=== PATIENT | male | born 1955 | race Caucasian/White ===

== ENCOUNTER 2020-01-28 13:17 | Inpatient (IN) | payer MEDICARE, OTHER ==
[~2020-01-28] VITALS: Ht 180.3 cm; Wt 74.3 kg
[2020-01-28] MEDS ORDERED: HYDROCODON-ACET15 ML PEG (13:51)
[2020-01-28] MEDS ORDERED: LEVOXYL100 MCG PEG (13:52)
[2020-01-28] MEDS ORDERED: GOOD NEIGHBOR P20 M1 PEG (13:54)
[2020-01-28] MEDS ORDERED: [UNRECOGNIZED DRUG - OTHER] IV (13:58)
[2020-01-28] MEDS ORDERED: PHENOBARBITAL32.4 M1 PEG (14:00)
[2020-01-28] MEDS ORDERED: DILANTIN 100MG100 MG PEG (14:05)
[2020-01-28] MEDS ORDERED: DILANTIN30 MG PEG (14:10)
[2020-01-28] MEDS ORDERED: SCOPOLAMINE TOP (14:15)
[2020-01-28] MEDS ORDERED: METFORMIN HYD1000 MG PEG (14:15)
[2020-01-28 17:15] VITALS: BP 124/77
[2020-01-28 17:27] VITALS: BP 124/77
[2020-01-28 18:07] VITALS: BP 124/77
[2020-01-29 05:37] LABS: MEAN CELL VOLUME 104 fl (78-100); MEAN CORPUSCULAR HEMOGLOBIN 33 pg (27-31); MEAN CORPUSCULAR HGB CONC 32 g/dL (33-37); MEAN PLATELET VOLUME 11.3 fl (7.4-10.4); PLATELET COUNT 74 K/mm3 (130-400); RED CELL DISTRIBUTION WIDTH 22.9 % (11.5-14.5); WHITE BLOOD COUNT 3.7 K/mm3 (4.8-10.8)
[2020-01-29 05:41] LABS: RED BLOOD COUNT 2.27 M/mm3 (4.20-5.60)
[2020-01-29 05:42] LABS: HEMATOCRIT 23.6 % (42.0-52.0); HEMOGLOBIN 7.5 g/dL (13.5-18.0)
[2020-01-29 05:44] LABS: POTASSIUM 4.8 mmol/L (3.5-5.1)
[2020-01-29 05:46] LABS: CALCIUM 8.4 mg/dL (8.3-10.5)
[2020-01-29 05:52] VITALS: BP 127/82
[2020-01-29 06:23] LABS: BAND 7 % (0-10); LYMPHOCYTE 13 % (20-51); MONOCYTE 10 % (3-10); NEUTROPHILS 65 % (42-75)
[2020-01-29 06:24] LABS: POLYCHROMASIA 1+; TOXIC GRANULATION PRESENT
[2020-01-29 18:03] VITALS: BP 137/85
[2020-01-30 06:05] VITALS: BP 135/79
[2020-01-30 10:06] LABS: MEAN CELL VOLUME 105 fl (78-100); MEAN CORPUSCULAR HEMOGLOBIN 33 pg (27-31); MEAN CORPUSCULAR HGB CONC 31 g/dL (33-37); MEAN PLATELET VOLUME 11.1 fl (7.4-10.4); PLATELET COUNT 94 K/mm3 (130-400); RED CELL DISTRIBUTION WIDTH 22.8 % (11.5-14.5); WHITE BLOOD COUNT 3.5 K/mm3 (4.8-10.8)
[2020-01-30 10:09] LABS: ALBUMIN 2.7 g/dL (3.4-4.8)
[2020-01-30 10:10] LABS: POTASSIUM 5.3 mmol/L (3.5-5.1)
[2020-01-30 10:11] LABS: CALCIUM 8.7 mg/dL (8.3-10.5)
[2020-01-30 10:12] LABS: TOTAL PROTEIN 6.8 g/dL (6.2-8.1)
[2020-01-30 10:38] LABS: TOTAL BILIRUBIN 0.1 mg/dL (0.2-1.2)
[2020-01-30 10:51] LABS: BAND 3 % (0-10); HEMOGLOBIN 7.4 g/dL (13.5-18.0); LYMPHOCYTE 17 % (20-51); MONOCYTE 10 % (3-10); NEUTROPHILS 66 % (42-75); RED BLOOD COUNT 2.28 M/mm3 (4.20-5.60)
[2020-01-30 17:02] VITALS: BP 164/89
[2020-01-30 23:23] LABS: TESTOSTERONE 72 ng/dL (221-716)
[2020-01-31 05:25] VITALS: BP 159/81
[2020-01-31 08:00] LABS: MEAN CELL VOLUME 104 fl (78-100); MEAN CORPUSCULAR HEMOGLOBIN 33 pg (27-31); MEAN CORPUSCULAR HGB CONC 32 g/dL (33-37); MEAN PLATELET VOLUME 10.9 fl (7.4-10.4); PLATELET COUNT 120 K/mm3 (130-400); RED CELL DISTRIBUTION WIDTH 22.8 % (11.5-14.5); WHITE BLOOD COUNT 3.4 K/mm3 (4.8-10.8)
[2020-01-31 08:08] LABS: HEMOGLOBIN 7.3 g/dL (13.5-18.0); RED BLOOD COUNT 2.21 M/mm3 (4.20-5.60)
[2020-01-31 08:09] LABS: LYMPHOCYTE 16 % (20-51); MONOCYTE 13 % (3-10)
[2020-01-31 08:10] LABS: BAND 3 % (0-10); NEUTROPHILS 66 % (42-75)
[2020-01-31 08:32] LABS: ALBUMIN 2.7 g/dL (3.4-4.8); CALCIUM 8.4 mg/dL (8.3-10.5); POTASSIUM 5.1 mmol/L (3.5-5.1); TOTAL BILIRUBIN 0.1 mg/dL (0.2-1.2); TOTAL PROTEIN 6.8 g/dL (6.2-8.1)
[2020-01-31 16:55] VITALS: BP 123/81
[2020-02-01 05:43] VITALS: BP 128/77
[2020-02-01 18:08] VITALS: BP 121/75
[2020-02-02 05:25] VITALS: BP 123/75
[2020-02-02 07:43] LABS: EOS # 0.1 (0.04-0.40); EOS % 1.4 % (0.0-4.0); MEAN CELL VOLUME 104 fl (78-100); MEAN CORPUSCULAR HEMOGLOBIN 33 pg (27-31); MEAN CORPUSCULAR HGB CONC 32 g/dL (33-37); MEAN PLATELET VOLUME 10.6 fl (7.4-10.4); MONO # 0.5 (0.20-0.80); NEU # 3.2 (1.40-6.50); PLATELET COUNT 149 K/mm3 (130-400); WHITE BLOOD COUNT 4.4 K/mm3 (4.8-10.8)
[2020-02-02 08:00] LABS: HEMATOCRIT 23.2 % (42.0-52.0); HEMOGLOBIN 7.4 g/dL (13.5-18.0); LYMPH# 0.6 (1.50-4.00); RED BLOOD COUNT 2.23 M/mm3 (4.20-5.60)
[2020-02-02 08:14] LABS: ALBUMIN 2.9 g/dL (3.4-4.8); POTASSIUM 5.1 mmol/L (3.5-5.1)
[2020-02-02 08:15] LABS: CALCIUM 8.5 mg/dL (8.3-10.5); MAGNESIUM 1.82 mg/dL (1.60-2.60)
[2020-02-02 08:16] LABS: TOTAL PROTEIN 7.5 g/dL (6.2-8.1)
[2020-02-02 08:42] LABS: TOTAL BILIRUBIN 0.1 mg/dL (0.2-1.2)
[2020-02-02 14:49] VITALS: BP 138/79
[2020-02-02 18:10] VITALS: BP 139/77
[2020-02-03 04:28] LABS: FOLLICLE STIMULATING HORMONE 15.3 mIU/mL (()); LUTENIZING HORMONE 14.8 mIU/mL (())
[2020-02-03 04:58] LABS: FOLATE (FOLIC ACID) 8.3 ng/mL (>=4.0)
[2020-02-03 05:26] VITALS: BP 141/80
[2020-02-03 18:00] VITALS: BP 139/77
[2020-02-04 05:48] VITALS: BP 134/81
[2020-02-04 16:37] VITALS: BP 124/77
[2020-02-05 05:34] VITALS: BP 131/75
[2020-02-05 11:56] LABS: VITAMIN B1 114 nmol/L (70-180)
[2020-02-05 17:08] VITALS: BP 136/81
[2020-02-06] VITALS (10 sets, daily range): BP systolic 111–154; BP diastolic 63–90
[2020-02-06 07:50] LABS: CALCIUM 7.9 mg/dL (8.3-10.5)
[2020-02-06 07:54] LABS: PHENYTOIN (DILANTIN) 4.9 ug/mL (10.0-20.0)
[2020-02-06 08:56] LABS: EOS # 0.1 (0.04-0.40); EOS % 2.4 % (0.0-4.0); HEMATOCRIT 19.9 % (42.0-52.0); HEMOGLOBIN 6.5 g/dL (13.5-18.0); LYMPH# 0.6 (1.50-4.00); MEAN CELL VOLUME 104 fl (78-100); MEAN CORPUSCULAR HEMOGLOBIN 34 pg (27-31); MEAN CORPUSCULAR HGB CONC 33 g/dL (33-37); MEAN PLATELET VOLUME 10.2 fl (7.4-10.4); MONO # 0.5 (0.20-0.80); NEU # 3.4 (1.40-6.50); PLATELET COUNT 215 K/mm3 (130-400); RED BLOOD COUNT 1.92 M/mm3 (4.20-5.60); RED CELL DISTRIBUTION WIDTH 24.8 % (11.5-14.5); WHITE BLOOD COUNT 4.7 K/mm3 (4.8-10.8)
[2020-02-07 06:00] VITALS: BP 130/76
[2020-02-07 06:19] LABS: HEMATOCRIT 47.3 % (42.0-52.0); HEMOGLOBIN 16.5 g/dL (13.5-18.0)
[2020-02-07 13:23] LABS: HEMATOCRIT 30.3 % (42.0-52.0); HEMOGLOBIN 10.1 g/dL (13.5-18.0)
[2020-02-07 18:00] VITALS: BP 127/76
[2020-02-08 06:03] VITALS: BP 138/64; BP 145/81
[2020-02-08 16:29] VITALS: BP 123/78
[2020-02-09 06:03] VITALS: BP 133/80
[2020-02-09 07:24] LABS: HEMATOCRIT 30.5 % (42.0-52.0); MEAN CELL VOLUME 101 fl (78-100); MEAN CORPUSCULAR HEMOGLOBIN 33 pg (27-31); MEAN CORPUSCULAR HGB CONC 33 g/dL (33-37); PLATELET COUNT 266 K/mm3 (130-400); RED BLOOD COUNT 3.02 M/mm3 (4.20-5.60); RED CELL DISTRIBUTION WIDTH 22.4 % (11.5-14.5); WHITE BLOOD COUNT 4.2 K/mm3 (4.8-10.8)
[2020-02-09 07:40] LABS: LYMPHOCYTE 14 % (20-51); MICROCYTOSIS 1+; MONOCYTE 12 % (3-10); NEUTROPHILS 67 % (42-75)
[2020-02-09 08:01] LABS: ALBUMIN 2.6 g/dL (3.4-4.8); POTASSIUM 5.3 mmol/L (3.5-5.1)
[2020-02-09 08:04] LABS: TOTAL PROTEIN 6.9 g/dL (6.2-8.1)
[2020-02-09 08:10] LABS: MAGNESIUM 1.77 mg/dL (1.60-2.60)
[2020-02-09 08:14] LABS: TOTAL BILIRUBIN 0.1 mg/dL (0.2-1.2)
[2020-02-09 17:06] VITALS: BP 149/74
[2020-02-09 17:07] VITALS: BP 149/74
[2020-02-10 05:47] VITALS: BP 134/80
[2020-02-10 08:59] VITALS: BP 124/86
[2020-02-10 17:43] VITALS: BP 146/73
[2020-02-11 05:52] VITALS: BP 129/79
[2020-02-11 18:10] VITALS: BP 126/78
[2020-02-12 00:54] LABS: ADRENOCORTICOTROPIC HORMONE 89 pg/mL (5-27)
[2020-02-12 05:40] VITALS: BP 128/75
[2020-02-12 08:20] LABS: HEMATOCRIT 32.3 % (42.0-52.0); HEMOGLOBIN 10.3 g/dL (13.5-18.0); MEAN CELL VOLUME 102 fl (78-100); MEAN CORPUSCULAR HEMOGLOBIN 33 pg (27-31); MEAN CORPUSCULAR HGB CONC 32 g/dL (33-37); MEAN PLATELET VOLUME 9.5 fl (7.4-10.4); PLATELET COUNT 243 K/mm3 (130-400); RED BLOOD COUNT 3.16 M/mm3 (4.20-5.60); RED CELL DISTRIBUTION WIDTH 22.5 % (11.5-14.5); WHITE BLOOD COUNT 5.8 K/mm3 (4.8-10.8)
[2020-02-12 08:37] LABS: ALBUMIN 2.8 g/dL (3.4-4.8)
[2020-02-12 08:38] LABS: CALCIUM 8.4 mg/dL (8.3-10.5)
[2020-02-12 08:42] LABS: TOTAL BILIRUBIN 0.1 mg/dL (0.2-1.2)
[2020-02-12 08:43] LABS: PHENYTOIN (DILANTIN) 5.3 ug/mL (10.0-20.0)
[2020-02-12 08:44] LABS: BAND 3 % (0-10); LYMPHOCYTE 7 % (20-51); MONOCYTE 12 % (3-10); NEUTROPHILS 71 % (42-75)
[2020-02-12 08:45] LABS: MICROCYTOSIS 1+; OVALOCYTES 1+
[2020-02-12 17:14] VITALS: BP 120/76
[2020-02-13 05:21] VITALS: BP 118/76
[2020-02-13 16:11] VITALS: BP 119/72
[2020-02-14 05:35] VITALS: BP 135/77
[2020-02-14 17:46] VITALS: BP 120/73
[2020-02-15 05:32] VITALS: BP 156/81
[2020-02-15 16:02] VITALS: BP 109/67
[2020-02-16 05:34] VITALS: BP 133/86
[2020-02-16 07:30] LABS: HEMATOCRIT 32.6 % (42.0-52.0); HEMOGLOBIN 10.4 g/dL (13.5-18.0); MEAN CELL VOLUME 104 fl (78-100); MEAN CORPUSCULAR HEMOGLOBIN 33 pg (27-31); MEAN CORPUSCULAR HGB CONC 32 g/dL (33-37); MEAN PLATELET VOLUME 9.9 fl (7.4-10.4); PLATELET COUNT 180 K/mm3 (130-400); RED BLOOD COUNT 3.14 M/mm3 (4.20-5.60); RED CELL DISTRIBUTION WIDTH 22.4 % (11.5-14.5); WHITE BLOOD COUNT 4.9 K/mm3 (4.8-10.8)
[2020-02-16 07:36] LABS: CALCIUM 8.3 mg/dL (8.3-10.5)
[2020-02-16 07:46] LABS: MAGNESIUM 1.7 mg/dL (1.60-2.60)
[2020-02-16 07:55] LABS: TOTAL BILIRUBIN 0.1 mg/dL (0.2-1.2)
[2020-02-16 08:17] LABS: BAND 1 % (0-10); LYMPHOCYTE 12 % (20-51); MONOCYTE 16 % (3-10); NEUTROPHILS 61 % (42-75)
[2020-02-16 16:09] VITALS: BP 129/80
[2020-02-17 05:43] VITALS: BP 138/76
[2020-02-17 17:16] VITALS: BP 112/52
[2020-02-18 05:27] VITALS: BP 151/79
[2020-02-18] MEDS ORDERED: DILANTIN100 MG/4 M PEG (09:51)
[2020-02-18] MEDS ORDERED: PHENOBARBITAL32.4 M1 PEG (09:52)
[2020-02-18] MEDS ORDERED: FAMOTIDINE20 MG PO (09:53)
[2020-02-18] MEDS ORDERED: GLUCOPHAGE PO (09:55)
[2020-02-18] MEDS ORDERED: COUGH100 MG/5 M PO (09:55)
[2020-02-18] MEDS ORDERED: HYDROCODON-ACET15 ML PEG (09:58)
[2020-02-18] MEDS ORDERED: ONDANSETRON4 MG/5 M1 PO (10:31)
== END 2020-02-18 12:50 | disposition home health service (06) | DRG 948 ==
LOC: MED/SURG 13:17
PROVIDERS: Family Medicine; Internal Medicine; Nurse Practitioner; Nurse Practitioner Family; ADMIT Physician Assistant
DX: R53.81 Other malaise (principal); D61.818 Other pancytopenia; K21.9 Gastro-esophageal reflux disease without esophagitis; E03.9 Hypothyroidism, unspecified; E11.9 Type 2 diabetes mellitus without complications; G40.909 Epilepsy, unspecified, not intractable, without status epilepticus; D53.9 Nutritional anemia, unspecified; Z93.1 Gastrostomy status; Z93.0 Tracheostomy status; Z85.818 Personal history of malignant neoplasm of other sites of lip, oral cavity, and pharynx; Z79.891 Long term (current) use of opiate analgesic; Z79.84 Long term (current) use of oral hypoglycemic drugs; Z87.891 Personal history of nicotine dependence
CPT/HCPCS: A9270-GY; J0834; J1071; J1815; J1885; J2405; P9016; Q9967

== ENCOUNTER 2020-09-27 13:12 | Inpatient (IN) | payer MEDICARE, OTHER ==
[~2020-09-27] VITALS: Ht 180.3 cm; Wt 78.3 kg
[~2020-09-27 13:12] MED LIST: COUGH100 MG/5 M PO; DILANTIN 100MG100 MG PEG; DILANTIN100 MG/4 M PEG; DILANTIN30 MG PEG; FAMOTIDINE20 MG PO; GLUCOPHAGE PO; GOOD NEIGHBOR P20 M1 PEG; HYDROCODON-ACET15 ML PEG; LEVOXYL100 MCG PEG; METFORMIN HYD1000 MG PEG; ONDANSETRON4 MG/5 M1 PO; PHENOBARBITAL32.4 M1 PEG; SCOPOLAMINE TOP; [UNRECOGNIZED DRUG - OTHER] IV
[2020-09-27] MEDS ORDERED: IPRATROPIUM BROM3 M1 IH (16:20)
[2020-09-27] MEDS ORDERED: SENEXON-S 50-81 EACH PEG (16:21)
[2020-09-27] MEDS ORDERED: ALBUTEROL1.25 MG/3 IH (16:21)
[2020-09-27] MEDS ORDERED: NOVOLOG 100U100 U/ML SQ (16:24)
[2020-09-27] MEDS ORDERED: LEVEMIR100 U/M1 SQ (16:24)
[2020-09-27] MEDS ORDERED: AMOXICILLIN AND50 M1 PEG (16:25)
[2020-09-27] MEDS ORDERED: MUCOMYST 20200 MG/M1 IH (16:26)
[2020-09-27] MEDS ORDERED: DILANTIN-1125 MG/51 PEG (16:29)
[2020-09-27] MEDS ORDERED: PRILOSEC 20MG20 MG PO (16:30)
[2020-09-27] MEDS ORDERED: PHENOBARBITAL32.4 M1 PEG (16:31)
[2020-09-27] MEDS ORDERED: HYDROCODON-ACET15 ML PEG (16:35)
[2020-09-27 16:37] VITALS: BP 136/82
[2020-09-27] MEDS ORDERED: [UNRECOGNIZED DRUG - OTHER] IV (16:37)
[2020-09-27] MEDS ORDERED: SCOPOLAMINE1 EACH TD (16:39)
[2020-09-27] MEDS ORDERED: DILANTIN30 MG PEG (16:41)
[2020-09-27] MEDS ORDERED: GLUCOPHAGE1000 MG PEG (16:42)
[2020-09-27] MEDS ORDERED: SYNTHROID0.15 MG PEG (16:43)
--- NOTE | 2020-09-27 18:00 | NUR ---
Pt arrived to 203 for SWB. Pt arrived with trach in place on room air. PICC line to L. upper arm; dual lumen; blood return and flushes easily. Report of dressing and cap cahnge earlier today prior to departure from [facility]. Dressing clean, dry and intact. No redness of drainage to insertion site. Pt alert and oriented. Reported epigastric pain of 4/10 but denied need for intervention at this time. Pt has PEG tube in place, clamped. Insertion site with scant amount of crusting but no redness. PEG tube 30ml air bolus auscultated, no residual noted. Flushed with 30ml water without difficulty. Pt hooked up to continuous 2Cal feedings at 54ml/hr with 125ml flushes q4h as instructed. Midline abd incision open to air; 19 christa present. Edges well-approximated. Pt swishes water in mouth and spits water out and suctions self but noted to cough afterward. Pt states he does this at home. Pt strongly encouraged by nursing staff to avoid this until further assessment can be completed. Pt verbalized understanding but states he would like to continue at home practices at this time. Pt seems to be in good spirits and interacts well with staff. Occasionally jokes with self and smile. Call light within reach. Bed alarm on. Pt aware of fall precations. Denies further needs at this time.
--- NOTE | 2020-09-27 18:23 | NUR ---
Pt familiar to me from [facility]. This RD arranged feeding plans TF formula, pump and tubing. Discussed care with pt's nurse. Order his feeding regimen same as Ann. Will complete nutrition assessment tomorrow.
--- NOTE | 2020-09-27 19:40 | NUR ---
Report given to Tisha Granados LPN.
--- NOTE | 2020-09-27 22:00 | NUR ---
Report received at shift change by Sully/Aster RN's. This nurse in room now to do shift assessment and administer medications. Patient had rang call light prior to nurse going in room and stated to CHEMICAL TECHNICIAN that he has a pain in his L groin area. [place] 7.5 MG given along with other HS medications via PEG. Tube feeding was stopped 30 Minutes prior to administration of Dilantin and will resume 30 minutes after at 54 ML/HR. 125 ML water flush given at this time. HOB elevated > 30 degrees. Patient self suctions trach PRN and also rinses and spits mouth with ice water. Assessment completed. Became nauseated, IV Zofran administered. Denies further wants or needs. Remains on Airborne precautions pending results of COVID PCR. Bed alarm on. Call light in reach.
--- NOTE | 2020-09-28 03:37 | NUR ---
Scheduled nebulizer tx given via trach. Denies pain or nausea. Has some "indigestion". Moved up higher in bed with HOB elevated. Continues to self suction trach PRN.
--- NOTE | 2020-09-28 05:13 | NUR ---
Rings call light, State he is "sick". Nauseated with no emesis. Residual checked and is 10 ML. Zofran IV given. HOB remains elevated >30 degrees.
[2020-09-28 06:12] VITALS: BP 147/85
--- NOTE | 2020-09-28 07:19 | NUR ---
Report to Mallory/Aster HAIRSTON's.
--- NOTE | 2020-09-28 07:55 | NUR ---
Shift report received from Tisha Granados LPN.
[2020-09-28 10:08] LABS: BASO # 0.1 (0.02-0.10); EOS # 0.5 (0.04-0.40); HEMATOCRIT 25.3 % (42.0-52.0); LYMPH# 0.8 (1.50-4.00); MEAN CORPUSCULAR HEMOGLOBIN 35 pg (27-31); MEAN CORPUSCULAR HGB CONC 31 g/dL (33-37); MEAN PLATELET VOLUME 9.8 fl (7.4-10.4); MONO # 0.6 (0.20-0.80); PLATELET COUNT 286 K/mm3 (130-400); WHITE BLOOD COUNT 5.9 K/mm3 (4.8-10.8)
[2020-09-28 10:11] LABS: ALBUMIN 2.7 g/dL (3.4-4.8); POTASSIUM 4.4 mmol/L (3.5-5.1)
[2020-09-28 10:13] LABS: CALCIUM 8.6 mg/dL (8.3-10.5)
[2020-09-28 10:14] LABS: TOTAL PROTEIN 5.9 g/dL (6.2-8.1)
[2020-09-28 10:26] LABS: PROTHROMBIN TIME 10.3 SECONDS (9.0-12.0); TOTAL BILIRUBIN 0.1 mg/dL (0.2-1.2)
--- NOTE | 2020-09-28 10:40 | NUR ---
ST isidro requested for pt. GRACY Mccord gave verbal order.
[2020-09-28 10:44] LABS: RED BLOOD COUNT 2.24 M/mm3 (4.20-5.60)
[2020-09-28 10:45] LABS: EOS % 7.7 % (0.0-4.0); HEMOGLOBIN 7.8 g/dL (13.5-18.0); MEAN CELL VOLUME 113 fl (78-100)
--- NOTE | 2020-09-28 10:46 | NUR ---
Received call from Aaliyah in Lab with critical Hgb of 7.8. Called and updated provider, GRACY Saunders. No new orders at this time.
--- NOTE | 2020-09-28 11:00 | NUR ---
Pt reporting pain of 5/10 to his L. neck. Offered pain medication. Pt declined and stated "I try to avoid them." Encouraged pt to contact nurses if pain increases or he changes his mind regarding pain medication.
[2020-09-28 11:15] LABS: URINE APPEARANCE CLEAR; URINE BILIRUBIN NEGATIVE (NEGATIVE); URINE BLOOD NEGATIVE (NEGATIVE); URINE COLOR YELLOW; URINE GLUCOSE 50 mg/dL mg/dL (NEGATIVE); URINE KETONE NEGATIVE (NEGATIVE); URINE LEUKOCYTE ESTERASE NEGATIVE (NEGATIVE); URINE MUCUS PRESENT (NOT PRESENT); URINE NITRATE NEGATIVE (NEGATIVE); URINE PROTEIN(semi-quant) TRACE mg/dL (NEGATIVE); URINE UROBILINOGEN NORMAL (NORMAL); URINE WBC 0-1 /hpf (0-3)
--- NOTE | 2020-09-28 11:44 | NUR ---
the pt's inner cannula of his trach is removed and cleansed at this time. the trach is put back in place after cleansing. the pt tolerates procedure well.
--- NOTE | 2020-09-28 16:13 | NUR ---
Spoke with Hilton. She states she would like her to have an air matress to prevent bed sores. She states that he has a current bed sore that is in the process of healing. She would like to know it is being addressed. She also would like for her 's trach to be changed out two times a day once in the morning and once in the evening. She states that her was receiving chemo treatments by Dr. Spivey. She has not spoken or has not seen Dr. Casanova in over a month. She would like to know when her will be following up with Dr. Casanova. She also thinks her needs Vitamin D and would be willing to bring his up if needed. Social History: Yung has since retired. 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 He graduated from High school. They have a son named Rick. Rick helps with the care of his Dad. Yung likes motorcycles, trains and growing [employer] trees. He receives Home Health Care from [facility]. He gets pt, ot, and speech therapy. It is possible he will need a bath aid as well upon discharge.
[2020-09-28 17:31] VITALS: BP 138/73
--- NOTE | 2020-09-28 19:15 | NUR ---
Report given to Argelia Bueno RN.
--- NOTE | 2020-09-28 21:27 | NUR ---
Pt assessed and assessment charted. PT c/o pain to abd and trach site, PRN [place] given per request. ABD midline well approximated with christa intact and no dressing. PEG residual less than 5 mls, meds given. New tubing and tube feeding started 30 minutes after infusion. Pt received RT treatments. Up to bathroom, SBA but unsteady at times. Bed alarm on, pt in bed and appears comfortable, SCDs on, will continue to monitor.
--- NOTE | 2020-09-28 22:45 | NUR ---
Madeline NORTON into see patient.
--- NOTE | 2020-09-29 00:10 | NUR ---
Patient reported nausea then indigestion and zofran IV and protonix via peg tube given.
[2020-09-29 05:54] VITALS: BP 130/66
--- NOTE | 2020-09-29 06:00 | NUR ---
Patient rests in bed. Had only 3mls residual in peg tube this am. Denies needs at this time. Uses yanker suction prn, suctions thick velazquez drainage.
--- NOTE | 2020-09-29 11:40 | NUR ---
Air Mattress to prevent bedsores has been ordered by GRACY Borrego. Will contact materials managment to order.
--- NOTE | 2020-09-29 13:23 | NUR ---
CALL FROM PT'S PCP TO NOTIFY STAFF HIS ZOOM FOR TOMORROW HAS BEEN CANCELLED FOR THE TIME BEING, WILL NOTIFY STAFF
--- NOTE | 2020-09-29 13:40 | NUR ---
PT MOVED TO ROOM 308 THIS AM, SMILING AT THIS TIME, ZERO RESIDUAL WITH TUBE FEED, FLUSHING WELL, PEG MEDS ADMINISTERED WITH NO DIFFICULTY, PT DENIES NEEDS, ABLE TO SPEAK WITH SPEAKING VALVE, DENIES PAIN, WATCHING TELEVISION AND RESTING IN BED, ICE CHIPS UPON REQUEST, CALL LIGHT WITHIN REACH AND BED ALARM ON, STAPES TO ABDOMINAL INCISION CDI/REPAIRER SWITCHGEAR, DENIES PAIN AT SITE, ONLY C/O RIGHT HAND PAIN THIS SHIFT, MINIMAL AT THIS TIME
--- NOTE | 2020-09-29 15:53 | NUR ---
TRACH CARE IS PERFORMED AT THIS TIME. THE PT'S INNER CANNULA IS REMOVED AND AND CLEANSED. IT IS PLACED BACK INTO TRACH SITE. THE PT TOLERATES PROCEDURE WELL. PT DENIES ANY NEEEDS AT THIS TIME. WHILE THIS RN IS IN THE ROOM THE PT IS NOTED TO DRINK WATER FROM A CUP WHICH HAD MELTED ICE IN IT. THE PT IS INSTRUCTED NOT TO DRINK WATER HE IS AT RISK FOR ASPIRATING. THE CUP IS REMOVED FROM THE PT'S REACH.
--- NOTE | 2020-09-29 17:53 | NUR ---
PT GAGGING AND "SPITTING UP", PT DRINKING MELTED ICE CHIPS, EDUCATED MULTIPLE TIMES TODAY TO NOT DRINK THIN LIQUIDS, ICE CHIP CUPS REMOVED FROM ROOM AT THIS TIME FOR SAFETY PT IS A HIGH ASPIRATION RISK IF HE CONTINUES TO DRINK THIN LIQUIDS FREELY FROM A CUP
[2020-09-29 18:10] VITALS: BP 120/75
--- NOTE | 2020-09-30 01:03 | NUR ---
PATIENT CALLED TO USE THE REST ROOM, AMBULATED TO THE BATHROOM AND BACK WITH 1 ASSIST W/WALKER AND GAIT BELT, BEARS WEIGHT WITHOUT DIFFICULTY BUT OCCASIONALLY UNSTEADY ON FEET, VOIDS WITHOUT DIFFICULTY, UPON RETURN TO BED, PATIENT C/O NAUSEA AND BEGINS DRY HEAVING, IV ZOFRAN GIVEN AT THIS TIME, AFTER DRY HEAVING STOPS, PATIENT REQUESTS DEEP SUCTIONING, PERFORMED AT THIS TIME USING STERILE TECHNIQUE, PATIENT TOLERATES WELL, COOL CLOTH APPLIED TO FOREHEAD, PATIENT RESTING QUIETLY ON BED, HOB > 45 DEGREES, CALL LIGHT WITHIN REACH, SIDE RAILS UP X 2, BED ALARM ON, TUBE FEEDING INFUSING AT 54 CC/HR AT THIS TIME WITHOUT DIFFICULTY
[2020-09-30 05:51] VITALS: BP 149/75
--- NOTE | 2020-09-30 07:00 | NUR ---
RECEIVED REPORT FROM YOVANNY MASSEY.
--- NOTE | 2020-09-30 13:33 | NUR ---
patient resting in bed; has been up to chair this morning but mostly in bed. Patient is working with PT and denied pain with this nurse and denied nausea today. Patient is cooperative and helps with PEG tube during meds. Kangaroo pump used for continuous feeds.
--- NOTE | 2020-09-30 15:58 | NUR ---
PATIENT'S BACK WAS ASSESSED AND BANDAGES REMOVED. NOTED TO HAVE ABRASIONS TO CENTER OF BACK ALONG THE SPINE. ONE APPEARS TO BE RED ARA FROM RIPPING TAPE OFF; AND PATIENT EXPLAINS THAT THIS IS FROM THE PUMP THEY HAD ON HIM AT [facility]. PATIENT HAD 3 OTHER SMALL AREAS THAT HAVE SCABS AND THEY ARE HEALED AND NO AREAS ARE DRAINING. LEFT OPEN TO AIR AND UPDATED PATIENT. HE WANTED A PICTURE TAKEN ON HIS PHONE SO HE COULD SEE IT. PICTURE TAKEN AND ASKED HIM TO LEAVE IT ON THERE AND MAYBE WE CAN COMPARE IT TO SEE THE PROGRESS OF HEALING JUST IN CASE. PATIENT AGREED. PATIENT DENIES PAIN TO HIS BACK. PATIENT'S SACRUM NOTED TO BE HEALED FROM A PAST BED SORE THAT HE REPORTS HE HAD A WHILE AGO. PATIENT WAS GIVEN OPTION FOR AIR MATTRESS AND HE REFUSES IT AT THIS TIME. PATIENT IS UPDATED THAT HIS WOULD LIKE HIM TO HAVE THE MATTRESS AND HE STILL SAYS NO. PATIENT HAS BEEN PULLING OUT HIS INNER CANNULA TRACH AND SUCTIONS TRACH HIMSELF. PATIENT ASKED FOR A LONG CANNULA TO SUCTION DEEP AND EXPLAINED TO PATIENT THAT ISN'T SOMETHING WE CAN GIVE HIM TO DO. PATIENT ROLLED HIS EYES.
[2020-09-30 17:17] VITALS: BP 147/64
--- NOTE | 2020-09-30 17:23 | NUR ---
Spoke with Hilton on the phone today. She was concerned that her was not getting a shower and getting his hair washed. She also wanted to make sure that his trach dressing was clean and dry and changed twice a day. She also wanted to make sure he was warm enough. she said that she would try to call him tomorrow. Today he could not understand her very well. I went in to see Mr. Eng and he says with the PessiMeir valve that he does not need the air matress at this time. He also said that he had a shower yesterday and they washed his hair. Trach dressing changed per 's request. Advised that his PCR Covid-19 screening is negative.
[2020-10-01 06:19] VITALS: BP 132/77
--- NOTE | 2020-10-01 12:30 | NUR ---
Called pt's , Hilton, to follow up on a question about pt's Vitamin D. Hilton was concerned that pt was not getting his home Vitamin D. Reassured her that it had been ordered yesterday. Hilton also voiced concern over pt;s trach site and the care pt has been receiving. Reassured Hilton that nursing staff had received the supplies that she brought in earlier in the week and that they were providing trach care to pt as ordered. Hilton voiced questions about when provider would visit with pt and when bloodwork would be done. Discussed SWB LOC process. Explained that labwork was completed this week and was ordered again for next week. Hilton requested to have nursing staff and pt call her sometime today. Questions and concerns addressed with Hilton. Encouraged her to follow as needed. Discussed request and concerns with primary nurse.
--- NOTE | 2020-10-01 14:28 | NUR ---
PT'S PEG TUBE LEAKING AT CONNECTION SITE, THIS NURSE REINFORCES TUBE, TAPES INTO PLACE AND SECURE WITH COBAN, LEAK CONTROLLED, TRACH CARE PROVIDED, PT TOLERATED PROCEDURE WELL, SURROUNDING SKIN AT TRACH SITE CLEAN AND DRY, MINIMAL REDNESS, BARRIER CREAM PROVIDED BY APPLIED PER REQUEST, PT NOTIFIED THAT IS REQUESTING HE CALL HER ON HIS CELL PHONE, PT ROLLS HIS EYES AND HOLDS HIS HAND UP IN THE AIR AND VERIFIES "I DON'T WANT TO RIGHT NOW," PT ALLOWED TO REMAIN RESTING IN BED, DENIES PAIN, DENIES NEEDS, INTERMITTENT STRONG DRY COUGH THROUGHOUT TRACH CARES
--- NOTE | 2020-10-01 16:35 | NUR ---
PT IN BED RESTING AND WATCHING TELEVISION, AMBULATORY TO AND FROM RESTROOM WITH STRONG STEADY GAIT, DENIES PAIN, CALM AFFECT, DENIES NEEDS, PEG FEEDING AND TUBING CHANGED OUT AT THIS TIME, ZERO RESIDUAL WITH CHECKS ON THIS SHIFT, RESPIRATIONS UNLABORED AND DRY, CALL LIGHT WITHIN REACH AND BED ALARM ON
[2020-10-01 18:04] VITALS: BP 144/77
--- NOTE | 2020-10-01 18:12 | NUR ---
UKE DRIVER REPORTS PT IS "COUGHING AND APPEARS TO BE VOMITING," REPORTS PT HAD "WHAT LOOKS LIKE TUBE FEED, BUT SMELLS LIKE VOMIT" DRIPPING FROM HIS TRACH, THIS NURSE REPORTS TO ROOM, PT IS UP IN BED, BREATHING IN UNLABORED, DRY INTERMITTENT COUGH, PT WATCHING NEWS AND NO LONGER HAVING EPISODE, TUBE FEED STOPPED, RESIDUAL:0 AT THIS TIME, NO WET COUGH OR NOISES COMING FROM TRACH, PRN ZOFRAN ADMINISTERED, TUBE FLUSHED AND PT EDUCATED THAT WE WILL STOP TUBE FEED FOR APPROX 1 HOUR AND LET PRN NAUSEA MED TAKE EFFECT AND THEN FURTHER REASSESS, PT GIVES A "NOD" AND THUMBS UP AND IS ALLOWED TO REST IN BED, UKE DRIVER REPORTS MINIMAL EMESIS, APPEARS MORE "DROPS" FROM HIS TRACH SITE THAT PT CLEANED UP WITH A KLEENEX
--- NOTE | 2020-10-01 18:48 | NUR ---
REPORT TO YAHIR RN, YAHIR NOTIFIED THAT PT'S TF IS CURRENTLY STOPPED DUE TO RECENT NAUSEA EPISODE
--- NOTE | 2020-10-01 20:29 | NUR ---
Patient up to the bathroom and back to bed. Denies pain. Affect flat, alert and oriented. HS meds reviewed and given via peg tube. Couphs up thick yellow/tanish sputum from trach and uses yanker suction. Watches TV.
--- NOTE | 2020-10-01 20:53 | NUR ---
Trach care done and clean canula inserted. Cleansed around trach site with saline and peroxide then applied barrier cream.
--- NOTE | 2020-10-01 21:00 | NUR ---
Tube feeding held 30 minutes before and after dilantin and restarted at this time. No complaints of nausea at this time.
--- NOTE | 2020-10-02 01:30 | NUR ---
Patient rests with eyes closed.
--- NOTE | 2020-10-02 01:50 | NUR ---
Patient requests norco for left sided neck pain "from cancer". States sharp pain. [place] given via peg tube. Tube feeding infuses without problems.
--- NOTE | 2020-10-02 04:29 | NUR ---
Patient sat up in bed and couphed up large amount velazquez tinged thick sputum from trach and uses yanker suction. Cold wash cloth given.
--- NOTE | 2020-10-02 05:00 | NUR ---
Patient resting with eyes closed.
[2020-10-02 05:48] VITALS: BP 151/71
--- NOTE | 2020-10-02 08:30 | NUR ---
Pt a/o x 3. Denies any pain. Uses yankeur suction intermittently. Has productive cough - yellowish/tanish in color. Inner cannula in place for trach. Lungs coarse throughout. Denies any SOB. PEG tube in place - site without redness or edema. Tube feeding stopped for 30 minutes as dilantin due at 0900. No residual noted. Water does not flow by gravity to flush PEG but does flush easily with syringe. Pt tolerates well. Meds to be crushed and put through PEG. Refuses senekot this am. New sponge given for mouthcare - pt performs himself. PICC intact COURT - blood return noted - sluggish with NS flushing. Requests up to BR. Ambulates w/ steady gait w/ CGA to BR - has stool and voids REAL ESTATE LOAN PROCESSOR reports. Pt encouraged to return to chair but requests bed. Bed alarm on and call light in reach. Adarsh changed out. Pt tried to call but unable to reach her at this time. Shobha Stat[place] valve in place for short time.
--- NOTE | 2020-10-02 09:40 | NUR ---
Pt in shower - will reconnect tube feed upon his return.
--- NOTE | 2020-10-02 09:55 | NUR ---
Pt returns to bed to rest - very tired as did his shower himself. Tube feeding of 2 suresh HN restarted at rate of 54 Mls/hr her PEG w/ 125 mls of water every 4 hours. Denies further needs at this time. Bed alarm on and call light in reach. Able to get a few smiles out of pt this am.
--- NOTE | 2020-10-02 11:30 | NUR ---
calls and pt will call her back after his walk. Pt ambulates in valenzuela using walker and CGA and tolerates well. Gait steady.
--- NOTE | 2020-10-02 12:00 | NUR ---
Resting in bed with eyes closed. Resp even and unlabored.
--- NOTE | 2020-10-02 17:55 | NUR ---
Pt rests off and on this afternoon. Feeds stopped for 30 min before dilantin and for 30 min after dilantin today. Watched Football game. Continues to deny any pain. Encouraged pt to be up in the chair once more this afternoon or evening - pt verbalizes understanding.
[2020-10-02 18:00] VITALS: BP 117/73
--- NOTE | 2020-10-02 18:15 | NUR ---
PEG feeding restarted at 54 Mls/hr. Pt states he needs BR. Gait unsteady tonight with walker - walking fast. Has loose stool and voids 200 mls. Pt up to wash hands and has some bile emesis (small amount). Mouthcare done. Returns to toilet per request - very small additional loose. Pt indicates he would like nausea med. Back to bed with steadier gait with walker. Bed alarm on.
--- NOTE | 2020-10-02 20:00 | NUR ---
Report received from Rosina HAIRSTON. Patient resting supine in bed with HOB elevated >30 degrees. Resting with eyes closed, awakens easily with verbal stimuli. Denies pain at this time and reports that nausea he had earlier has subsided. PEG tube feeding infusing Two Wes HN infusing at 54 ML/HR. Site patent. Stopped at this time for 30 minutes prior to administration of Dilantin. No residula noted. Flushed with water. Continues to use Yankauer to self sution intermittently. Lungs remain coarse with occasional noted production of velazquez thick phelgm out trach. PICC line intact to L upper arm, Continues to flush sluggish with NS. Calls for assist to BR PRN. Up with 1:1 Assist.
--- NOTE | 2020-10-02 20:40 | NUR ---
HS medications given at this time Via PEG tube, SQ insulin and nebulizer tx. Refused Senokot, Has been having loose stools. Refused Trach care at this time. States "it was just done not too long ago". Advised patient to let me know when he wants it. He has been resting well without complaint tonight.
--- NOTE | 2020-10-03 05:02 | NUR ---
AM Synthroid given via PEG Tube. Trach care given at this time. Inner cannula changed and stoma cleansed, dried and barrier cream applied. Patient suctions large amount of thick phelgm.
[2020-10-03 05:55] VITALS: BP 132/86
--- NOTE | 2020-10-03 06:50 | NUR ---
Report to Rosina HAIRSTON.
--- NOTE | 2020-10-03 09:00 | NUR ---
Pt a/o x 4. Denies any pain. Watching TV. Tube feeding off as being held for 30 before am dilantin. PEG in place with site without redness or edema and flushed easily with syringe. COURT PICC in place without redness or edema. Pt has productive white thick sputum. Ovidiokuer at bedside of his prn use. Refused senekot this am. Denies any nausea this am. Call light in reach and bed alarm on.Lungs coarse throughout but sound better than yesterday. Denies needs at this time.
--- NOTE | 2020-10-03 13:20 | NUR ---
Report to YOVANNY Davila. Tube feeding held 30 min prior to dilantin and 30 min after dilantin and restarted at this time at 54 mls/hr with 125 ml water flush (every 4 hours) without difficulty. Pt denies any nausea. Taking a short nap. Denies any needs at this time.
--- NOTE | 2020-10-03 14:33 | NUR ---
Report received from Monika Mar RN and care assumed. Pt resting in bed. States that he feels like trach may be clogged with sputum because it is difficult to breathe through it. Trach insert changed using sterile technique. Moderate amount of sputum removed from old trach insert. Pt coughing up some thin yellow sputum and using suction as needed. No further needs at this time. Call light in reach, bed alarm on.
--- NOTE | 2020-10-03 17:50 | NUR ---
Pt states he is having left neck pain. Says this is a normal place for him to have pain. Requested pain medication. Pain medication provided per PRN orders.
[2020-10-03 18:01] VITALS: BP 145/62
--- NOTE | 2020-10-03 18:32 | NUR ---
Pt states that pain is a little decreased after pain medication given.
--- NOTE | 2020-10-03 18:56 | NUR ---
Report given to Royal Granados, AUTOMATIC STEEL TIE ADJUSTER and care transferred at this time.
--- NOTE | 2020-10-03 20:15 | NUR ---
Report from Lola HAIRSTON. Patient rings call light and is pointing towards his throat. States is having trouble clearing phelgm. Sitting up on EOB and self suctioning. Trach care given at this time and inner cannula noted to be clogged with thick velazquez phelgm. Scheduled nebulzier tx given at this time. Assessment completed.
--- NOTE | 2020-10-03 20:30 | NUR ---
Scheduled HS medication given via PEG tube. States having nausea, Zofran 4 MG given SIVP through Purple port of PICC. PICC with good blood return, flushed a little hard.
--- NOTE | 2020-10-03 22:09 | NUR ---
Currently rests in bed with eyes closed.
--- NOTE | 2020-10-03 22:55 | NUR ---
Awake and requests something else for nausea. Phenergan 12.5 MG IV infusion given at this time.
--- NOTE | 2020-10-04 04:50 | NUR ---
Up to BR with assist of PICTURES EDITOR. Clean catch UA obtained and taken to lab. AM Synthroid administered through PEG tube.
[2020-10-04 05:53] VITALS: BP 151/79
[2020-10-04 07:09] LABS: HEMATOCRIT 26.8 % (42.0-52.0); HEMOGLOBIN 8.4 g/dL (13.5-18.0); MEAN CELL VOLUME 110 fl (78-100); MEAN CORPUSCULAR HEMOGLOBIN 35 pg (27-31); MEAN CORPUSCULAR HGB CONC 31 g/dL (33-37); MEAN PLATELET VOLUME 10.4 fl (7.4-10.4); PLATELET COUNT 317 K/mm3 (130-400); RED BLOOD COUNT 2.43 M/mm3 (4.20-5.60); RED CELL DISTRIBUTION WIDTH 13.7 % (11.5-14.5); WHITE BLOOD COUNT 5.8 K/mm3 (4.8-10.8)
--- NOTE | 2020-10-04 07:26 | NUR ---
Report to Mallory HAIRSTON.
[2020-10-04 07:56] LABS: LYMPHOCYTE 14 % (20-51); MONOCYTE 7 % (3-10); NEUTROPHILS 69 % (42-75); OVALOCYTES 1+
[2020-10-04 08:37] LABS: URINE APPEARANCE CLEAR; URINE BILIRUBIN NEGATIVE (NEGATIVE); URINE BLOOD NEGATIVE (NEGATIVE); URINE COLOR YELLOW; URINE GLUCOSE NEGATIVE (NEGATIVE); URINE KETONE NEGATIVE (NEGATIVE); URINE LEUKOCYTE ESTERASE NEGATIVE (NEGATIVE); URINE NITRATE NEGATIVE (NEGATIVE); URINE PROTEIN(semi-quant) TRACE mg/dL (NEGATIVE); URINE UROBILINOGEN NORMAL (NORMAL)
[2020-10-04 08:38] LABS: URINE MUCUS PRESENT (NOT PRESENT)
[2020-10-04 17:23] VITALS: BP 121/76
[2020-10-05 06:10] VITALS: BP 149/79
[2020-10-05 06:41] LABS: ALBUMIN 3.2 g/dL (3.4-4.8); POTASSIUM 4.8 mmol/L (3.5-5.1)
[2020-10-05 06:42] LABS: CALCIUM 8.8 mg/dL (8.3-10.5)
[2020-10-05 06:44] LABS: TOTAL PROTEIN 7.1 g/dL (6.2-8.1)
[2020-10-05 06:46] LABS: TOTAL BILIRUBIN 0.1 mg/dL (0.2-1.2)
[2020-10-05 06:50] LABS: MAGNESIUM 2.16 mg/dL (1.60-2.60)
--- NOTE | 2020-10-05 07:50 | NUR ---
Report recevied from YOVANNY Montoya.
--- NOTE | 2020-10-05 09:45 | NUR ---
Pt alert and oriented and sitting up in bed. Trach care provided. Inner cannula replaced and old one cleaned. Stoma site clean and lotion from applied.
--- NOTE | 2020-10-05 14:37 | NUR ---
ARRIVES. SHE IS ABLE TO VISIT WITH PATIENT THROUGH HOSPITAL ROOM WINDOW. UPDATE TO PLAN OF CARE PROVIDED.
--- NOTE | 2020-10-05 16:06 | NUR ---
Spoke with Yung after the SWB meeting. He is not interested in speaking with someone from [facility]. Advised that He will be discharged from the hospital on morning. He will have an outpatient procedure after discharge and then will go home with his after peg tube placement.
[2020-10-05 17:19] VITALS: BP 121/75
--- NOTE | 2020-10-05 17:30 | NUR ---
Plan for pt to be discharged home . Pt to be seen by Dr. Forde early morning after discharge as an outpatient for EGD and possible PEG tube replacement. Pt to have tube feedings stopped and be NPO at 0100 on . Pt updated with plan of care.
--- NOTE | 2020-10-05 19:20 | NUR ---
REPORT PROVIDED TO LUIS F HAIRSTON.
--- NOTE | 2020-10-05 19:56 | NUR ---
PT SITTING UP IN BED WAQTCHING TV, PLEASANT AND APPROPRIATE AT THIS TIME. PT DENIES ANY PAIN, REPORTS LESS SOB TODAY THAN YESTERDAY. PED TUBE FEEDING PLACED ON HOLD AT THIS TIME FOR MED ADMINISTRATION IN 30 MINS. PT IS INTERMITTENTLY SUCTIONING HIS TRACH NEEDED, REPORTS CLEAR SPUTUM. PT HAS SCD'S IN PLACE BILAT. PT DENIES ANY OTHER NEEDS OR CONCERNS AT THIS TIME. CALL LIGHT WITHIN REACH.
--- NOTE | 2020-10-06 01:01 | NUR ---
NEW BAG OF 2.0 AFIA HN HUNG AT THIS TIME.
[2020-10-06 06:13] VITALS: BP 116/73
--- NOTE | 2020-10-06 06:15 | NUR ---
PT HAS RESTED OFF AND ON THROUGH THE NIGHT WITHOUT ANY ISSUES. PT IS CONTINUOUSLY SUCTIONING HIS TRACH AND OBTAINS MODERATE AMOUNTS OF TANNISH COLORED THICK MUCOUS. PT HAS PEG TUBE FEEDING RUNNING CONTINUOUSLY WITH INTERMITTENT WATER FLUSHES. MEDS HAVE BEEN GIVEN THROUGH PEG TUBE WITHOUT ANY ISSUES. PT HAS DENIES ANY PAIN OR OTHER CONCERNS THROUGH THE NIGHT. PT HAS CALL LIGHT WITHIN REACH.
--- NOTE | 2020-10-06 06:50 | NUR ---
Report received from YOVANNY Hameed.
--- NOTE | 2020-10-06 12:15 | NUR ---
Spoke with Antonette Rose RD regarding pt's discharge and how to continue tube feedings at discharge. Antonette recommends that pt return to his home regimen. Called and spoke with Hilton, pt's . Asked about home regimen. She states that they normally only do night feeds. She is unsure of the rate but states that they normally start the feeding around [id number] and then they stop it around 1030 the next morning. She states that they normally do 4.5 cans but is unsure of rate. She is going to see if her son knows the rate. Also, updated her on discharge plans for tomorrow () morning. Informed her that the current plan is for pt to be discharged around 0700 and then go straight to his GI consult. Hilton voiced concern about discharge tomorrow. She would prefer for pt to be discharged on Sunday so her son can help her. Explained the importance of the scheduled GI appointment. Hilton said that she would see if her son could help pick pt up tomorrow morning. Hilton also voiced concern regarding pt's labs and breathing status.
--- NOTE | 2020-10-06 13:10 | NUR ---
Pt sitting up in bed. Reported that he was having difficulty breathing. Pt sating 98% on RA. Lung sounds clear but diminshed to LLL. Pt able to sit up and cough. Pt able to describe that he was having difficuly clearing his secretion. After sitting up pt reports feeling better. No respiratory distress noted. Respirations even and unlabored but tachypneic. Discussed with GRACY Gonzalez. Also, discussed Canela's () concerns. No change in orders at this time. Encouraged pt to keep discharge plans for tomorrow unless pt's status worsens. Continue to watch pt respiratory status.
--- NOTE | 2020-10-06 13:38 | NUR ---
called [facility] to get tube feeding rates and amount of flushes. Awaiting response. Spoke with Hilton and advised that he was going to be discharged tomorrow morning and then see Dr. Rodriguez for a peg tub placement since his is over a year old and has a crack in the tube. She states understanding and that she wishes to have [facility] home health and have a nurse/bathaid/pt/ot/st. upon discharge. Yung does not need an dme at this time. Canela would like for her to go home on Sunday when her son is there to help. I would like to speak with Hilton about computer terminal operator care for her .
--- NOTE | 2020-10-06 14:22 | NUR ---
Spoke with [facility]. Mr. Eng's tube feedings at home were 80 mls/hour and overnight. 30 mls before and 30 mls after medications given. 1000 mls intermittantly throughout the day. [facility] states that Hilton manages his feedings. Asked to resume home health stating discharge will be Tomorrow morning. 10/07/20 after replacement of GI Tube. She states understanding and accepts Mr. Eng upon discharge.
--- NOTE | 2020-10-06 14:37 | NUR ---
I called and left a vociemail with nurse to call back to schedule follow up visit. I called and spoke to office to schedule a televisit for ID and wound care consult. They were unsure if a wound consult would be available since the patient is not established there. They were agreeable to ID consult and asked if we coulf send a HP for the [place] to [facility] and determine if able to do wound consult. They will review and then f/u.
--- NOTE | 2020-10-06 14:57 | NUR ---
I called and left a voicemail with nurse to call to schedule a follow up appointment after discharge that is scheduled for tomorrow.
--- NOTE | 2020-10-06 15:22 | NUR ---
Patient is scheduled for a f/u appt at 11am on 10/13- telehealth with Dr. Mcdaniels.
--- NOTE | 2020-10-06 15:30 | NUR ---
Notified of home feeding routine by YOVANNY Cornejo CM. Discussed with GRACY Gonzalez. Feeding toube rate to be changed to 80ml/hr. Continue to hold 30min prior and 30min after medications. Will plan to stop feedings AM at 0100 in prep for GI consult tomorrow morning. Call placed to Hilton () to update on the plan or care.
--- NOTE | 2020-10-06 17:02 | NUR ---
Reviewed information for Yung's discharge to home with Niurka. Both State understanding.
[2020-10-06 17:19] VITALS: BP 114/71
--- NOTE | 2020-10-06 19:10 | NUR ---
Report given to YOVANNY Montoya.
--- NOTE | 2020-10-07 00:15 | NUR ---
PATIENT CALLS SEVERAL TIMES OVER THE LAST 20 MINUTES, SUCTION WASN'T WORKING RIGHT, YAUNKER CLEANED, TUBING UNTWISTED, NEEDED NEW ICE IN HIS BUCKET FOR HIS WASHCLOTHS HE PLACES ON HIS FOREHEAD, WANTED MORE ICE CHIPS, THEN HE CALLS FOR DIFFICULTY BREATHING, ASSISTED IN USING YAUNKER TO SUCTION TRACH, 2 STAFF MEMBERS BOOST HIM UP IN BED SO HE CAN SIT UP STRAIGHTER, PRN ALBUTEROL NEB GIVEN WHILE THIS NURSE STANDS AT BEDSIDE TO MONITOR, DURING NEB, PATIENT COUGHS UP SEVERAL CLEAR THIN SECRETIONS WHICH NURSE QUICKLY REMOVES FROM HIS TRACH, AT THE END OF NEB, PATIENT STATES HE IS BREATHING BETTER, NO ADVANTITIOUS SOUNDS FROM HIS AIRWAY, TUBE FEEDING INFUSING AT 80ML/HR WITHOUT DIFFICULTY, PATIENT SITTING UP AT ALMOST 90 DEGREES, COOL WASHCLOTH REPLACED TO HIS FOREHEAD, SUCTION TUBING IN PATIENTS HAND, CALL LIGHT WITHIN REACH, BED ALARM ON, SIDE RAILS UP X 2, PATIENT RESTING WITH EYES CLOSED, WILL CONTINUE TO MONITOR
[2020-10-07 06:24] VITALS: BP 138/78
--- NOTE | 2020-10-07 06:45 | NUR ---
Surgical nurse at bedside to talk with patient about the procedure he will be having this morning. Patient is alert and oriented, interactive with staff. Resp even/unlabored at this time. Patient is to be discharged from swing bed stay to go over to surgery for PEG tube replacement, patient agreeable to plan
--- NOTE | 2020-10-07 07:15 | NUR ---
THE PT IS DISCHARGED TO SURGERY DEPARTMENT TO HAVE NEW PEG TUBE PLACED. PT IS PROVIDED DISCHARGE INSTRUCTIONS AND EDUCATION AND PT DENIES ANY QUESTIONS OR CONCERNS.
== END 2020-10-07 07:25 | disposition home health service (06) | DRG 947 ==
LOC: MED/SURG 13:12
PROVIDERS: Internal Medicine; Nurse Practitioner; ADMIT Physician Assistant
DX: R53.81 Other malaise (principal); J69.0 Pneumonitis due to inhalation of food and vomit; E87.2 Acidosis; N17.9 Acute kidney failure, unspecified; G40.909 Epilepsy, unspecified, not intractable, without status epilepticus; C10.9 Malignant neoplasm of oropharynx, unspecified; K21.9 Gastro-esophageal reflux disease without esophagitis; I10 Essential (primary) hypertension; E11.9 Type 2 diabetes mellitus without complications; E03.9 Hypothyroidism, unspecified; D64.9 Anemia, unspecified; Z79.4 Long term (current) use of insulin; Z79.891 Long term (current) use of opiate analgesic; Z93.1 Gastrostomy status; Z93.0 Tracheostomy status; Z87.891 Personal history of nicotine dependence
CPT/HCPCS: C9113; J1815; J2405; J2550

== ENCOUNTER → 2020-10-07 | Day surgery (SDC) | payer MEDICARE, OTHER ==
[2020-10-06 17:19] VITALS: BP 114/71
[~2020-10-07] MED LIST changes: +ALBUTEROL1.25 MG/3 IH; +AMOXICILLIN AND50 M1 PEG; +DILANTIN-1125 MG/51 PEG; +GLUCOPHAGE1000 MG PEG; +IPRATROPIUM BROM3 M1 IH; +LEVEMIR100 U/M1 SQ; +MUCOMYST 20200 MG/M1 IH; +NOVOLOG 100U100 U/ML SQ; +PRILOSEC 20MG20 MG PO; +SCOPOLAMINE1 EACH TD; +SENEXON-S 50-81 EACH PEG; +SYNTHROID0.15 MG PEG
== END ==
LOC: MSO 06:25
DX: K94.23 Gastrostomy malfunction (principal); K21.00 Gastro-esophageal reflux disease with esophagitis, without bleeding; E11.9 Type 2 diabetes mellitus without complications; Z90.49 Acquired absence of other specified parts of digestive tract; Z79.84 Long term (current) use of oral hypoglycemic drugs; Z87.891 Personal history of nicotine dependence; G40.909 Epilepsy, unspecified, not intractable, without status epilepticus
CPT/HCPCS: 00731; J2704; J7030